=== PATIENT | female | born 1995 | race African-American/Black ===

== ENCOUNTER 2017-01-08 16:01 | Emergency (ER) | payer MEDICAID ==
[~2017-01-08] VITALS: Ht 172.7 cm; Wt 107.0 kg
[2017-01-08 16:12] VITALS: BP 117/72
[2017-01-08] MEDS ORDERED: QUETIAPINE FUM200 MG ORAL (16:21)
[2017-01-08] MEDS ORDERED: Acetaminophen 500mg (ES) tab ORAL ONE (16:30)
[2017-01-08] MEDS ORDERED: TYLENOL EXTRA500 MG ORAL (16:47)
[2017-01-08 16:56] VITALS: BP 104/71
--- NOTE | 2017-01-09 21:44 | Emergency Room Report ---
History of Present Illness General Chief Complaint: Pain Source: Patient Present Illness HPI 21-year-old female presents ED complaining of right calf pain times one week. States that pain started while she was running. States that she recently started exercising and has been increasing her exercise intensity. Pain is throbbing, 7/10, nonradiating. Worse with walking and running. Denies any other injuries. Denies chest pain or shortness of breath. No other aggravating or relieving factors. Denies any other associated symptoms Allergies: Coded Allergies: No Known Allergies (Unverified , 01/08/17) Patient History Past Medical History: none Past Surgical History: none Pertinent Family History: none Social History: Denies: alcohol use, drug use, smoking Now: No Immunizations: UTD Reviewed Nursing Documentation: PMH: Agreed, PSxH: Agreed Nursing Documentation-PMH Past Medical History: No Stated History Review of Systems All Other Systems: negative except mentioned in HPI Physical Exam Vital Signs Date Time Temp Pulse Resp B/P Pulse Ox O2 Delivery O2 Flow Rate FiO2 01/08/17 16:12 98.2 20 117/72 97 Room Air 01/08/17 16:12 101 Sp02 EP Interpretation: reviewed, normal General Appearance: no apparent distress, alert, GCS 15, non-toxic Head: normocephalic Eyes: bilateral eye PERRL, bilateral eye normal inspection ENT: normal ENT inspection Neck: normal inspection Respiratory: chest non-tender, lungs clear, normal breath sounds, speaking full sentences Cardiovascular #1: regular rate, rhythm, no edema Gastrointestinal: normal inspection Rectal: deferred Genitourinary: no CVA tenderness Musculoskeletal: normal inspection, tender - TTP R calf. no swelling Neurologic: alert, oriented x3, responsive, motor strength/tone normal, sensory intact, speech normal Psychiatric: normal inspection Skin: normal inspection Lymphatic: normal inspection Medical Decision Making Diagnostic Impression: Primary Impression: Strain of calf muscle Qualified Codes: S86.811A - Strain of other muscle(s) and tendon(s) at lower leg level, right leg, initial encounter ER Course Hospital Course 21-year-old female presents to ED complaining of R calf pain no trauma Differential diagnoses include: Fracture, dislocation, sprain, contusion, bursitis Clinical course Patient placed on stretcher. After initial history, physical exam reveals a young female in no acute distress. There is some tenderness to the right calf. No bruising. No swelling. Full range of motion in the leg. No chest pain shortness of breath. Physical exam otherwise unremarkable pain is likely muscle strain which mother agrees with. reassurance given to the patient. Recommend analgesics and modifying activity. Heating pad Diagnosis - strain of calf muscle stable and discharged to home with prescription for tylenol. Followup with PMD. Return to ED if symptoms recur or worsen Last Vital Signs Date Time Temp Pulse Resp B/P Pulse Ox O2 Delivery O2 Flow Rate FiO2 01/08/17 16:56 92 16 104/71 96 Room Air 01/08/17 16:12 98.2 Status: improved Disposition: HOME, SELF-CARE Condition: Stable Scripts Acetaminophen* (TYLENOL EXTRA STRENGTH*) 500 Mg Tablet 500 MG ORAL Q8H Y for Prn Headache/Temp > 101, #30 TAB 0 Refills Prov: SVITLANA QUINN M.D. 01/08/17 Patient Instructions: Muscle Strain, [id number] SVITLANA QUINN M.D. January 09, 2017 21:44
== END 2017-01-08 16:57 | disposition home or self-care (01) ==
LOC: EMR 16:25
DX: S86.111A Strain of other muscle(s) and tendon(s) of posterior muscle group at lower leg level, right leg, initial encounter (principal); Y93.02 Activity, running; Y92.89 Other specified places as the place of occurrence of the external cause
CPT/HCPCS: 99283

== ENCOUNTER 2017-02-17 14:03 | Emergency (ER) | payer MEDICAID ==
[~2017-02-17] VITALS: Ht 175.3 cm; Wt 109.3 kg
[~2017-02-17 14:03] MED LIST: QUETIAPINE FUM200 MG ORAL; TYLENOL EXTRA500 MG ORAL
[2017-02-17 14:16] VITALS: BP 118/77
--- NOTE | 2017-02-17 14:27 | Emergency Room Report ---
History of Present Illness General Chief Complaint: General Complaint Source: Patient Present Illness HPI Patient is a 21-year-old female presented for EKG interpretation. Patient had been taking psychiatric medications and had recently had EKG performed. Patient guardian was requesting EKG interpretation. The patient no symptoms at this time. The patient was advised followup with flight deck officer her primary care physician. She had not been having any chest pain or vomiting. Allergies: Coded Allergies: No Known Allergies (Unverified , 01/08/17) Patient History Past Medical History: see triage record Last Menstrual Period: 01/27 Now: No Reviewed Nursing Documentation: PMH: Agreed, PSxH: Agreed Nursing Documentation-PMH Past Medical History: No History, Except For Review of Systems All Other Systems: negative except mentioned in HPI Physical Exam Vital Signs Date Time Temp Pulse Resp B/P Pulse Ox O2 Delivery O2 Flow Rate FiO2 02/17/17 14:10 98.4 93 20 118/77 100 Room Air General Appearance: well appearing, no apparent distress, alert, GCS 15, non- toxic Head: normocephalic, atraumatic ENT: hearing grossly normal, normal voice Neck: full range of motion, supple Respiratory: normal inspection, chest non-tender, lungs clear, no respiratory distress, speaking full sentences Cardiovascular #1: normal inspection, normal peripheral pulses, regular rate, rhythm, no edema, no JVD, no murmur Gastrointestinal: normal inspection, normal bowel sounds, non tender, soft, no mass Musculoskeletal: normal inspection, back normal, no calf tenderness Neurologic: normal inspection, alert, oriented x3, normal gait Psychiatric: normal inspection, judgement/insight normal, mood/affect normal Skin: normal inspection, no rash Medical Decision Making Diagnostic Impression: Primary Impression: Sinus arrhythmia ER Course The patient presented for EKG reading. Differential diagnosis included was not limited to prolonged QT interval arrhythmia the others. Patient's benign exam and does not appear to require any further imaging or laboratory testing at this time. EKG was ordered due to possible QT prolongation. . EKG showed no concerning findings that would preclude continuing psychiatric medications. The patient is advised to follow up with primary care doctor and psychiatrist. She was advised followup with cardiology as indicated by her primary care physician if needed . Patient is advised to return if any worsening condition or if any changes in status that are concerning EKG Diagnostic Results Rate: normal Rhythm: NSR - 90 ST Segments: no acute changes - sinus arrhythmia ASA given to the pt in ED: No Chest X-Ray Diagnostic Results Chest X-Ray Ordered: No Last Vital Signs Date Time Temp Pulse Resp B/P Pulse Ox O2 Delivery O2 Flow Rate FiO2 02/17/17 14:16 98.4 93 20 118/77 100 Room Air Status: unchanged Disposition: HOME, SELF-CARE Condition: Stable Nikhil Hi Feb 17, 2017 14:27
[2017-02-17 14:54] VITALS: BP 118/77
--- NOTE | 2017-02-19 11:18 | Cardiology Report ---
APPROVED REPORT EKG Measurement Heart [id number] QTc0 No QRS complexes found, no ECG analysis possible
== END 2017-02-17 14:55 | disposition home or self-care (01) ==
LOC: EMR 14:21
DX: I49.8 Other specified cardiac arrhythmias (principal)
CPT/HCPCS: 93005; 99283

== ENCOUNTER 2017-06-18 00:49 | Emergency (ER) | payer MEDICAID ==
[~2017-06-18] VITALS: Ht 172.7 cm; Wt 115.7 kg
[2017-06-18 01:18] VITALS: BP 116/76
--- NOTE | 2017-06-18 01:20 | Emergency Room Report ---
History of Present Illness General Chief Complaint: General Complaint Source: Patient Present Illness HPI Is a 21-year-old female with no past medical history. She presents with chief complaint of something rushing through her veins. She was dancing for about 10 minutes and afterward felt flushed. Said that she fell at sensation of something rushing through her body. Denies any dizziness. Denies any nausea vomiting. Denies any chest pain. She called her mom and came to the ER. She is better now. Denies any other complaint. Allergies: Coded Allergies: No Known Allergies (Unverified , 01/08/17) Patient History Past Medical History: none, see triage record, old chart reviewed Past Surgical History: none Pertinent Family History: none Social History: Denies: smoking Last Menstrual Period: 2 weeks ago Now: No Immunizations: other Reviewed Nursing Documentation: PMH: Agreed, PSxH: Agreed Nursing Documentation-PMH Past Medical History: No Stated History Review of Systems Eye: Denies: eye pain, blurred vision ENT: Denies: ear pain, nose congestion, throat swelling Respiratory: Denies: cough, shortness of breath Cardiovascular: Denies: chest pain, palpitations Gastrointestinal: Denies: abdominal pain, diarrhea, nausea, vomiting Musculoskeletal: Denies: back pain, joint pain Skin: Denies: rash Neurological: Denies: headache, numbness Endocrine: Denies: increased thirst, increased urine Hematologic/Lymphatic: Denies: easy bruising All Other Systems: negative except mentioned in HPI Physical Exam Vital Signs Date Time Temp Pulse Resp B/P (MAP) Pulse Ox O2 Delivery O2 Flow Rate FiO2 06/18/17 01:07 98.4 97 17 116/76 98 Room Air vitals normal Sp02 EP Interpretation: reviewed, normal General Appearance: well appearing, no apparent distress, alert Head: normocephalic, atraumatic Eyes: bilateral eye PERRL, bilateral eye EOMI ENT: hearing grossly normal, normal pharynx Neck: full range of motion, supple, no meningismus Respiratory: chest non-tender, lungs clear, normal breath sounds Cardiovascular #1: regular rate, rhythm, no murmur Gastrointestinal: normal bowel sounds, non tender, no mass, no organomegaly, no bruit, non-distended Musculoskeletal: back normal, gait/station normal, normal range of motion Psychiatric: mood/affect normal Skin: warm/dry Medical Decision Making Diagnostic Impression: Primary Impression: Normal exam ER Course Patient present with a normal physiological response to exercise. No evidence of infection. No evidence of any abnormality. No palpitation. We'll discharge home with reassurance. Last Vital Signs Date Time Temp Pulse Resp B/P (MAP) Pulse Ox O2 Delivery O2 Flow Rate FiO2 06/18/17 01:07 98.4 97 17 116/76 98 Room Air Status: unchanged Disposition: HOME, SELF-CARE Condition: Stable Additional Instructions: Followup with your Dr. in 7 days as needed. Return if worse. MARIAN LUNSFORD M.D. Jun 18, 2017 01:20
[2017-06-18 01:29] VITALS: BP 116/76
== END 2017-06-18 01:29 | disposition home or self-care (01) ==
LOC: EMR 01:24
DX: R20.8 Other disturbances of skin sensation (principal)
CPT/HCPCS: 99282

== ENCOUNTER 2018-11-26 09:48 | Emergency (ER) | payer MEDICAID ==
[~2018-11-26] VITALS: Ht 172.7 cm; Wt 114.3 kg
[2018-11-26] MEDS ORDERED: NKM (09:54)
[2018-11-26 10:06] VITALS: BP 108/57
[2018-11-26] MEDS ORDERED: Mylanta II UD 30ml ORAL ONE (10:15)
[2018-11-26] MEDS ORDERED: Dicyclomine HCl 10mg/5ml oral soln ORAL ONE (10:15)
[2018-11-26] MEDS ORDERED: Lidocaine 2% Visc 15ml soln ORAL ONE (10:15)
[2018-11-26] MEDS ORDERED: BENZTROPINE ME0.5 MG PO (10:40)
[2018-11-26 10:54] VITALS: BP 102/62
--- NOTE | 2018-11-26 17:30 | History and Physical Report ---
DATE OF ADMISSION: 11/26/2018 HISTORY OF PRESENT ILLNESS: This is a 22-year-old female with a history of schizophrenia who has been recently hospitalized at [facility] psychiatry florez. The patient has been given Haldol Decanoate in the hospital. The patient has a history of noncompliance and does not take her psychotropic medication. The patient is presenting with restlessness, akathisia like symptoms, which is worse at night. The patient stated that the symptoms started shortly after she was given Haldol Decanoate. The patient is denying any suicidal ideation. The patient stated she was started on Benadryl and Cogentin in the hospital; however, she ran out of the medication. PAST PSYCHIATRY HISTORY: Has a history of schizophrenia and several psychiatric hospitalizations. PAST MEDICAL HISTORY: Nonsignificant. ALLERGIES: No known drug allergies. SUBSTANCE ABUSE HISTORY: No known history of illicit drug use or alcohol. MENTAL STATUS EXAMINATION: The patient is alert, oriented times self, place, and situation. Mood is dysphoric and anxious. Affect is constricted, congruent with mood. Thought process is linear and goal oriented. Thought content, no suicidal or homicidal ideation. Cognition is intact. ASSESSMENT: Aurora I Schizophrenia. Aurora II Deferred. Aurora III Akathisia. Aurora IV Low. Aurora V 60 to 70. PLAN: 1. The patient will be discharged on Cogentin 2 mg p.o. at bedtime. 2. The patient is reluctant to take any other psychotropic medication. 3. The patient is not suicidal nor homicidal. The patient is not in eminent danger to self or others. 4. The patient will be followed up as an outpatient psychiatrist with her own psychiatrist. The patient stated that she has an appointment today. I asked several times if the patient was suicidal and she denied. Nurse was present during the evaluation. Kurt Varela M.D. DR: CADEN JOB#: [id number] CC:
--- NOTE | 2018-11-27 06:53 | Emergency Room Report ---
History of Present Illness General Chief Complaint: General Complaint Source: Patient Present Illness HPI 22-year-old female presents ED for evaluation. Patient complaining of feeling restless and unable to sleep. States symptoms started after recent hospitalization at [facility] psychiatric inpatient unit. States that during hospitalization she was given Haldol. States that she's been feeling the symptoms since. Denies hearing voices. Denies SI or HI. Denies alcohol or drug use. No other aggravating relieving factors. Denies any other associated symptoms Allergies: Coded Allergies: No Known Allergies (Unverified , 01/08/17) Patient History Past Medical History: psych hx Past Surgical History: none Pertinent Family History: none Social History: Denies: smoking, alcohol use, drug use Last Menstrual Period: 10/26/18 Now: No Immunizations: UTD Reviewed Nursing Documentation: PMH: Agreed; PSxH: Agreed Nursing Documentation-PMH Past Medical History: No History, Except For History Of Psychiatric Problem: Yes - schizoprenia Review of Systems All Other Systems: negative except mentioned in HPI Physical Exam Vital Signs Date Time Temp Pulse Resp B/P (MAP) Pulse Ox O2 Delivery O2 Flow Rate FiO2 11/26/18 09:52 98.1 87 16 106/71 96 Room Air Sp02 EP Interpretation: reviewed, normal General Appearance: no apparent distress, alert, GCS 15, non-toxic Head: normocephalic, atraumatic Eyes: bilateral eye normal inspection, bilateral eye PERRL ENT: hearing grossly normal, normal pharynx, no angioedema, normal voice Neck: full range of motion, supple/symm/no masses Respiratory: chest non-tender, lungs clear, normal breath sounds, speaking full sentences Cardiovascular #1: regular rate, rhythm, no edema Cardiovascular #2: 2+ carotid (R), 2+ carotid (L), 2+ radial (R), 2+ radial (L) , 2+ dorsalis pedis (R), 2+ dorsalis pedis (L) Gastrointestinal: normal bowel sounds, non tender, soft, non-distended, no guarding, no rebound Rectal: deferred Genitourinary: normal inspection, no CVA tenderness Musculoskeletal: back normal, gait/station normal, normal range of motion, non- tender Neurologic: alert, oriented x3, responsive, motor strength/tone normal, sensory intact, speech normal Psychiatric: judgement/insight normal, memory normal, no suicidal/homicidal ideation, other - flat affect Reflexes: 3+ bicep (R), 3+ bicep (L), 3+ tricep (R), 3+ tricep (L), 3+ knee (R) , 3+ knee (L) Skin: normal color, no rash, warm/dry, well hydrated Lymphatic: no adenopathy Medical Decision Making Diagnostic Impression: Primary Impression: Adverse reaction to drug Qualified Codes: T50.905A - Adverse effect of unspecified drugs, medicaments and biological substances, initial encounter ER Course Hospital Course 22-year-old female presents ED complaining of restlessness after receiving Haldol injection Differential diagnoses include: allergic reaction, adverse effect to medication , psychosis Clinical course Patient placed on stretcher. After initial history physical exam reveals female in no acute distress. Patient maintains flat affect but answers questions appropriately. Is alert oriented. No signs of hallucinations. Symptoms consistent with akasthisia often seen with some antipsychotic such as Haldol Patient was evaluated by Dr. Varela at bedside. Agrees with the assessment. Patient told her that she was in fact on Cogentin and Benadryl during her hospitalization but does not have the medication at this time I do not believe patient is danger to self or others. We will discharge with Cogentin. Patient states she has a psychiatry appointment later today. Safe for discharge close outpatient follow-up i. I feel this is a highly complex case requiring extensive working including EKG/Rhythm strip, Xray/CT/US, Blood/urine lab work, repeat exams while in ED, and administration of strong opiates/narcotics for pain control, admission to hospital or close patient follow up. Diagnosis - adverse reaction to drug Stable and discharged to home with prescriptions for cogentin. Followup with PMD. Return to ED if symptoms recur or worsen Last Vital Signs Date Time Temp Pulse Resp B/P (MAP) Pulse Ox O2 Delivery O2 Flow Rate FiO2 11/26/18 10:54 98.2 78 18 102/62 100 Room Air Status: improved Disposition: HOME, SELF-CARE Condition: Stable Scripts Benztropine Mesylate* (COGENTIN*) 0.5 Mg Tablet 2 MG PO QHS, #30 TAB Prov: Sudhir Burr MD 11/26/18 Referrals: NON PHYSICIAN (PCP) [facility] Psych ER - Peds ER - [facility] Intake Hotline - Patient Instructions: Basics of Medicine Management Sudhir Burr MD Nov 27, 2018 06:53
== END 2018-11-26 10:50 | disposition home or self-care (01) ==
LOC: EMR 10:20
DX: T50.905A Adverse effect of unspecified drugs, medicaments and biological substances, initial encounter (principal); F20.9 Schizophrenia, unspecified; X58.XXXA Exposure to other specified factors, initial encounter
CPT/HCPCS: 99283

== ENCOUNTER 2018-12-06 10:29 | Emergency (ER) | payer MEDICAID ==
[~2018-12-06] VITALS: Ht 175.3 cm; Wt 81.6 kg
[~2018-12-06 10:29] MED LIST changes: +BENZTROPINE ME0.5 MG PO; +NKM
[2018-12-06 10:33] VITALS: BP 115/74
--- NOTE | 2018-12-06 10:37 | NUR ---
ED Nurse Note: After RN finished triage note, pt states that she wants to leave because she got a call from her mom who told her to leave. Confirmed with the patient if she wants to leave without being seen by ERMD and pt states yes. VSS and no s/s of distress. Pt left the triage room with all the belongings with steady gait.
== END 2018-12-06 10:55 | disposition left against medical advice (07) ==
LOC: EMR 10:45
DX: R45.1 Restlessness and agitation (principal); Z53.21 Procedure and treatment not carried out due to patient leaving prior to being seen by health care provider

== ENCOUNTER 2018-12-16 16:04 | Emergency (ER) | payer MEDICAID ==
[~2018-12-16] VITALS: Ht 172.7 cm; Wt 113.4 kg
[2018-12-16 16:21] VITALS: BP 118/75
[2018-12-16] MEDS ORDERED: DiphenhydrAMINE 25mg/10ml Elixir ORAL ONE (16:45)
[2018-12-16] MEDS ORDERED: BENADRYL25 M3 PO (16:53)
[2018-12-16 17:08] VITALS: BP 118/75
--- NOTE | 2018-12-16 17:09 | NUR ---
ER DISCHARGE NOTE: Patient is cleared to be discharged per ERMD, pt is aox4, on room air, with stable vital signs. pt was given dc and prescription instructions, pt was able to verbalize understanding, pt is able to ambulate with steady gait. pt took all belongings.
--- NOTE | 2018-12-16 17:43 | Emergency Room Report ---
History of Present Illness General Chief Complaint: General Complaint Source: Family Member Present Illness HPI Patient is a 22-year-old female presented after increased agitation and generalized anxiousness. Patient prior history of bipolar disorder. She denies any auditory hallucinations or suicidal thoughts. She reports currently taking no medications. She had previously been on Latuda which had been working well however she discontinued this. Patient also recently been prescribed Wellbutrin which she also discontinued due to headaches. Patient denies any current auditory hallucinations but states she has had some in the past Allergies: Coded Allergies: No Known Allergies (Unverified , 12/06/18) Patient History Past Medical History: see triage record Last Menstrual Period: 11/28/2018 Now: No Reviewed Nursing Documentation: PMH: Agreed; PSxH: Agreed Nursing Documentation-PMH Past Medical History: No History, Except For History Of Psychiatric Problem: Yes - depression, schizoaffective disorder, anxiety Review of Systems All Other Systems: negative except mentioned in HPI Physical Exam Vital Signs Date Time Temp Pulse Resp B/P (MAP) Pulse Ox O2 Delivery O2 Flow Rate FiO2 12/16/18 16:12 98.4 104 20 118/75 96 Room Air General Appearance: well appearing, no apparent distress, alert, GCS 15, obese Head: normocephalic, atraumatic ENT: hearing grossly normal, normal voice Neck: full range of motion, supple Respiratory: lungs clear, no respiratory distress, speaking full sentences Cardiovascular #1: normal inspection Gastrointestinal: normal inspection Musculoskeletal: no calf tenderness Neurologic: normal inspection, alert, oriented x3, responsive, reverse engineer III-XII nml as tested, normal gait Psychiatric: normal inspection, judgement/insight normal, memory normal, mood/ affect normal, no suicidal/homicidal ideation, no delusions Skin: no rash Medical Decision Making Diagnostic Impression: Primary Impression: Bipolar disorder ER Course ;.Patient presented for increased anxiety. Differential diagnosis include was not limited to medication withdrawal, insomnia, akathisia among others. Patient has a benign exam and does not appear to require any further imaging or laboratory testing at this time. Patient was noted to have no acute psychiatric problems. Patient was given oral Benadryl. She was given prescription for Benadryl as needed. Patient was advised to return if she develops any suicidal thoughts or had any other concerns. Last Vital Signs Date Time Temp Pulse Resp B/P (MAP) Pulse Ox O2 Delivery O2 Flow Rate FiO2 12/16/18 17:08 98.4 103 20 118/75 96 Room Air Status: improved Disposition: HOME, SELF-CARE Condition: Stable Scripts Diphenhydramine HCl (Benadryl) 25 Mg Capsule 25 MG PO Q6HR, #30 CAP Prov: Nikhil Hi MD 12/16/18 Referrals: NON PHYSICIAN (PCP) Patient Instructions: Bipolar Disorder Additional Instructions: Follow up with your mental health provider. Return if you have any suicidal thoughts, or other concerns. Nikhil Hi MD Dec 16, 2018 17:43
== END 2018-12-16 17:10 | disposition home or self-care (01) ==
LOC: EMR 16:43
DX: F31.9 Bipolar disorder, unspecified (principal); F32.9 Major depressive disorder, single episode, unspecified; F41.9 Anxiety disorder, unspecified; F25.9 Schizoaffective disorder, unspecified; E66.9 Obesity, unspecified; Z68.38 Body mass index [BMI] 38.0-38.9, adult
CPT/HCPCS: 99282

== ENCOUNTER 2020-02-28 18:54 | Emergency (ER) | payer MEDICAID ==
[~2020-02-28] VITALS: Ht 172.7 cm; Wt 124.7 kg
[2020-02-28 18:43] VITALS: BP 110/72
--- NOTE | 2020-02-28 18:43 | NUR ---
ED Nurse Note: pt walked in to ed for c/o of weakness, headache, bodyache x 1 week. pt reports she was tested for covid 2 weeks ago and was positive,
[~2020-02-28 18:54] MED LIST changes: +BENADRYL25 M3 PO
--- NOTE | 2020-02-28 19:19 | Emergency Room Report ---
History of Present Illness General Chief Complaint: Flu Like Symptoms Source: Patient Present Illness HPI 24-year-old female presents to the emergency department for evaluation. Upon my assessment to obtain HPI and ROS I asked the patient what symptoms she is experiencing and she replied with" I wrote them down on the papers already, I cannot remember". After review of nurse triage note is appears the pt. reported having body aches, fatigue, head aches and nausea/vomiting x 1 week. When asked how many episodes of vomiting she has had, she replied with "I don't know". The patient denies having a cough, shortness of breath, wheezes, chest pain or palpitations. Patient denies dizziness, visual changes, photophobia, neck pain/stiffness, fevers or chills. The patient herself states that she currently does not have any pain. She is concerned that she tested positive for COVID-19 2 weeks ago. She denies abdominal pain or tenderness, urinary symptoms, or suspicion of . HPI and ROS is severely limited by pt. being poorly cooperative. Review of this pt. chart I saw she has a hx of Bipolar disorder. 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 is poorly cooperative and reluctant to provide sufficient details. Physical Exam Vital Signs Date Time Temp Pulse Resp B/P (MAP) Pulse Ox O2 Delivery O2 Flow Rate FiO2 02/28/20 18:40 98.1 93 20 110/72 (85) 95 Room Air Sp02 EP Interpretation: reviewed, normal General Appearance: no apparent distress, alert, GCS 15, non-toxic Head: normocephalic, atraumatic Eyes: bilateral eye normal inspection, bilateral eye PERRL ENT: hearing grossly normal, normal pharynx, normal voice, uvula midline, other - no nasal congestion Neck: full range of motion, no meningismus Respiratory: chest non-tender, lungs clear, normal breath sounds, no rhonchi, no respiratory distress, no retraction, no accessory muscle use, no wheezing, speaking full sentences Cardiovascular #1: regular rate, rhythm Gastrointestinal: normal bowel sounds, non tender, soft, no guarding Genitourinary: normal inspection, no CVA tenderness Musculoskeletal: normal range of motion, gait/station normal, non-tender Neurologic: alert, motor strength/tone normal, oriented x3, sensory intact, responsive, speech normal Psychiatric: judgement/insight normal, other - Pt. is withdrawn Skin: normal color Medical Decision Making PA Attestation Dr. Burr is my supervising Physician whom patient management has been discussed with. Diagnostic Impression: Primary Impression: Viral syndrome ER Course 24-year-old female presents to the emergency department for evaluation. Upon my assessment to obtain HPI and ROS I asked the patient what symptoms she is experiencing and she replied with" I wrote them down on the papers already, I cannot remember". After review of nurse triage note is appears the pt. reported having body aches, fatigue, head aches and nausea/vomiting x 1 week. When asked how many episodes of vomiting she has had, she replied with "I don't know". The patient denies having a cough, shortness of breath, wheezes, chest pain or palpitations. Patient denies dizziness, visual changes, photophobia, neck pain/stiffness, fevers or chills. The patient herself states that she currently does not have any pain. She is concerned that she tested positive for COVID-19 2 weeks ago. She denies abdominal pain or tenderness, urinary symptoms, or suspicion of . HPI and ROS is severely limited by pt. being poorly cooperative. Review of this pt. chart I saw she has a hx of Bipolar disorder. Ddx considered but are not limited to UTI, , viral GE, URI, hypothyroid , bi-polar disorder, meningitis, influenza, COVID-19 just to name a few. Vital signs: Pt. is afebrile, the remaining VS are WNL H&PE are most consistent with Viral Syndrome - no meningeal signs, Lungs are clear and oropharynx is not involved, no evidence of bacterial infection at this time. The patient is nontoxic in appearance she is sitting comfortably in no acute distress. She does not have evidence of hypoxia, increased respiratory effort or signs of respiratory distress. ORDERS: d/w pt. about providing a sample of her urine for UTI and testing. She declined. I educated the pt. that often UTI's dont always present with typical urinary symptoms and can cause symptoms similar to what she is experiencing. Pt. continues to decline. She states she is here because she tested positive for COVID-19 and is having symptoms of it. ED INTERVENTIONS: None required at this time. I discussed with this patient that currently at this time there is no specific treatment for the COVID-19 disease. I discussed with her that the standard of care is symptomatic treatment and explained that involves treating any symptoms at the patient's are currently having. I discussed with this patient that most young persons exhibiting mild illness that are positive for the disease are not hospitalized they are treated at home. -I do not identify an emergent condition at this time given the limited cooperation of the pt. With current presentation and Vital signs, pt. is stable for close outpatient follow up and conservative treatment. D/w pt. to return promptly to ED with worsening or new symptoms.- Pt. verbalizes' understanding and agreement with proposed treatment plan.proposed treatment plan. DISCHARGE: At this time pt. is stable for d/c to home. Will provide printed patient care instructions, and any necessary prescriptions. Care plan and follow up instructions have been discussed with the patient prior to discharge. Last Vital Signs Date Time Temp Pulse Resp B/P (MAP) Pulse Ox O2 Delivery O2 Flow Rate FiO2 02/28/20 18:43 93 20 Room Air 02/28/20 18:43 98.1 110/72 95 Disposition: HOME, SELF-CARE Condition: Stable Scripts Ibuprofen* (MOTRIN*) 400 Mg Tablet 400 MG ORAL THREE TIMES A DAY, #30 TAB 0 Refills Prov: Grace Lyons 02/28/20 Ondansetron Odt* (ZOFRAN ODT*) 4 Mg Tab.rapdis 4 MG BC EVERY 6 HOURS PRN for Nausea & Vomiting, #6 TAB 0 Refills Prov: Grace Lyons 02/28/20 Acetaminophen* (TYLENOL EXTRA STRENGTH*) 500 Mg Tablet 500 MG ORAL Q6H PRN for For Pain, #20 TAB 0 Refills Prov: Grace Lyons 02/28/20 Referrals: [facility] Patient Instructions: Medical Screening Exam Additional Instructions: ~ ~ An emergent medical condition has not been identified based on this patients presentation, exam and any necessary testing/imaging. The patient is determined to be stable for outpatient follow-up and management of symptoms by a primary care provider. Take medications as directed. Follow up with a Primary Care Provider in 3-5 days, even if your symptoms have resolved. --Please review list of primary care clinics, if you do not already have a primary care provider Return sooner to ED if new symptoms occur, or current symptoms become worse. - Please note that this Emergency Department Report was dictated using Fiberstarpower transformer repairer technology software, occasionally this can lead to erroneous entry secondary to interpretation by the dictation equipment. Grace Lyons Feb 28, 2020 19:19
[2020-02-28] MEDS ORDERED: ONDANSETRON ODT4 MG BC (19:22)
[2020-02-28] MEDS ORDERED: TYLENOL EXTRA500 MG ORAL (19:22)
[2020-02-28] MEDS ORDERED: IBUPROFEN400 MG ORAL (19:22)
[2020-02-28 19:31] VITALS: BP 115/70
--- NOTE | 2020-02-28 19:31 | NUR ---
ER DISCHARGE NOTE: Patient is cleared to be discharged per ERMD, pt is aox4, on room air, with stable vital signs. pt was given dc and prescription instructions, pt was able to verbalize understanding, pt id band removed without complications. pt is able to ambulate with steady gait. pt took all belongings.
== END 2020-02-28 19:31 | disposition home or self-care (01) ==
LOC: EDBD 18:54 → EMR 19:28
DX: B34.9 Viral infection, unspecified (principal); Z86.19 Personal history of other infectious and parasitic diseases
CPT/HCPCS: 99282

== ENCOUNTER 2020-03-19 16:12 | Emergency (ER) | payer MEDICAID ==
[~2020-03-19 16:12] MED LIST changes: +IBUPROFEN400 MG ORAL; +ONDANSETRON ODT4 MG BC
--- NOTE | 2020-03-19 16:48 | NUR ---
ED Nurse Note: Patient left without being seen
--- NOTE | 2020-03-19 16:49 | Emergency Room Report ---
History of Present Illness General Chief Complaint: To Be Triaged Present Illness HPI This patient left prior to evaluation by medical provider. Allergies: Coded Allergies: No Known Allergies (Unverified , 12/06/18) COVID-19 Screening Contact w/high risk pt: No Experienced COVID-19 symptoms?: Yes Patient History Now: No Medical Decision Making PA Attestation Dr. Cook Is my supervising Physician whom patient management has been discussed with. Diagnostic Impression: Primary Impression: Patient left without being seen ER Course This patient left prior to evaluation by medical provider. Disposition: LEFT W/OUT BEING SEEN Condition: Unknown Grace Lyons Mar 19, 2020 16:49
== END 2020-03-19 16:48 | disposition left against medical advice (07) ==
LOC: EMR 16:35
DX: Z53.21 Procedure and treatment not carried out due to patient leaving prior to being seen by health care provider (principal)

== ENCOUNTER 2020-08-16 13:30 | Emergency (ER) | payer MEDICAID ==
[~2020-08-16] VITALS: Ht 172.7 cm; Wt 140.6 kg
--- NOTE | 2020-08-16 13:38 | NUR ---
ED Nurse Note: pt presents to ED c/o L great toe in-grown nail pain. reports it has been there for 3 months, she had something similar in the R great toe and had it removed by a Dr. pt states she has been taking Lamisil and using topical abx ointment without relief of pain. she denies having DM
[2020-08-16 13:40] VITALS: BP 132/87
[2020-08-16] MEDS ORDERED: Lidocaine 1% MPF 10mg/ml 5ml INJ ONE (13:45)
--- NOTE | 2020-08-16 13:49 | Emergency Room Report ---
History of Present Illness General Chief Complaint: Skin Rash/Abscess Source: Patient Present Illness HPI 24-year-old female with past medical history of schizoaffective disorder and bipolar disorder presents today for toenail removal of left first toe. Patient states she has had toe pain for the past 3 months and that she was told by her doctor to go to the ER to have it removed. Patient states she has not tried anything to make it better, walking on it makes it worse. Denies any other associated signs or symptoms. 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 PULMONARY: No SOB, no cough, no wheezing CARDIAC: No chest pain, No palpitations, no leg swelling GI: No abdominal pain, no vomiting, no diarrhea , no melena or BRBPR : No flank pain, no dysuria, no hematuria, no frequency. MUSCULOSKELETAL: +left toe pain, No back pain, no neck pain, no leg pain SKIN: No rash, no itching, no bruising NEUROLOGICAL: No headache, no dizziness, no paresthesia , no focal weakness. 14 point Review of Systems is otherwise negative except per HPI Physical Exam Vital Signs Date Time Temp Pulse Resp B/P (MAP) Pulse Ox O2 Delivery O2 Flow Rate FiO2 08/16/20 13:32 110 18 132/87 (102) 95 Room Air 08/16/20 13:40 98.1 Other Organ Systems Physical Exam: GENERAL: Awake, alert, nontoxic, in no acute distress EYES: EOMI, conjunctiva without pallor HEAD/EARS/NOSE/THROAT: NCAT, oral mucosa moist, external nose and ear normal in appearance, oropharynx clear, no swelling or exudates. NECK: supple, nontender, no spasm, no JVD, no cervical adenopathy RESPIRATORY: no stridor, effort normal, no retractions, no accessory muscle use, BS clear bilaterally, no wheezes, no rhonchi, no rales, no rub. CARDIOVASCULAR: RRR, normal S1 S2, no murmur, no peripheral edema ABDOMINAL /GI: soft, nondistended, nontender, BS normal, no masses, no guarding, no Mcburneys point tenderness, no rebound, no Murpheys sign : No CVA tenderness MUSCULOSKELETAL: All extremities are non-tender, no swelling, FROM, normal strength, normal sensation, cap refill <2 seconds in all extremities EXTREMITIES: left first toe with lateral edges growing into nail wall on medial lateral aspect of toenail. No evidence of infection or erythema. No purulent drainage. Otherwise no leg swelling, pulses: 2+ brisk and normal in all distal extremities SKIN: No rash, skin is warm and dry. No cyanosis, no pallor NEUROLOGICAL: awake, alert and appropriate, oriented x3, speech normal, motor and sensation grossly intact PSYCHIATRIC: Normal mood, normal affect Procedures Additional Procedure Procedure Narrative TOENAIL REMOVAL PROCEDURE: Complete Toenail Removal without matrix ablation - left 1st toenail removal ANESTHESIA AGENT(S): Lidocaine 1% without epinephrine -Total amt used: 7 ml INDICATIONS/COUNSELING: -Patient desires toe nail removal and is medically indicated due to pain. Risk and benefits were discussed. Verbal consent was given. PROCEDURE -Toe was cleansed with alocohol -Performed digital block of the Right 1st/Great toe using anesthetic agent(s) listed above. -Elevated complete nail plate from matrix and freed from adjacent cuticle and periungual skin. -EBL less than 1ml. -Xeroform dressing applied and toe was wrapped with 4x4 -Instructed the patient to follow up for fever, erythema, swelling, pain, or f oul-smelling purulent discharge from the wound. Medical Decision Making PA Attestation Dr. Ca Is my supervising Physician whom patient management has been discussed with. Diagnostic Impression: Primary Impression: Ingrown toenail ER Course Pt. presents to the ED c/o ingrown toenail of left first toe for 3 months Ddx considered but are not limited to ingrown toenail, paronychia, toe fracture Vital signs: are WNL, pt. is afebrile ORDERS: none required at this time, the diagnosis is clinical ED INTERVENTIONS: H&PE are most consistent with ingrown toenail and therefore Left first digit toenail removed today without complications. Wound was wrapped with Xeroform dressing. She was advised to keep dry for 2 days and follow-up to ER primary care physician in 2 days for wound check. She was advised to do warm foot soaks. Do not suspect paronychia or cellulitis, there is no surrounding warmth erythema or swelling to patient's toe, no purulent discharge. She had no injury to her toe, she states that this pain has been occurring for 3 months and she has a history of ingrown toenails. She states that she was referred here by her primary care physician because he would not see her at his office. DISCHARGE: At this time pt. is stable for d/c to home. Will provide printed patient care instructions, and any necessary prescriptions. Care plan and follow up instructions have been discussed with the patient prior to discharge. Last Vital Signs Date Time Temp Pulse Resp B/P (MAP) Pulse Ox O2 Delivery O2 Flow Rate FiO2 08/16/20 13:40 98.1 110 18 132/87 95 Room Air Status: improved Disposition: HOME, SELF-CARE Condition: Stable [facility] Patient Instructions: Ingrown Toenail Additional Instructions: Take tylenol as needed for pain. Follow up with a Primary Care Provider in 1-2 days, even if your symptoms have resolved. Return to ER in 2 days for a wound check. In two day you can remove the bandage and clean the area with warm soapy water. You can then redress the toe with the remainder xeroform dressing. Return sooner to ED if new symptoms occur, or current symptoms become worse. - Please note that this Emergency Department Report was dictated using iRewardChartsocial science manager technology software, occasionally this can lead to erroneous entry secondary to interpretation by the dictation equipment. Lydia Jimenez PA-C Aug 16, 2020 13:49
[2020-08-16] MEDS ORDERED: Acetaminophen 500mg (ES) tab ORAL ONE (14:00)
[2020-08-16 15:08] VITALS: BP 130/78
--- NOTE | 2020-08-16 15:08 | NUR ---
ED Nurse Note: Pt cleared by ERPA for discharge. DC instructions was given and explained to pt and verbalized understanding of teachings. All medical deviecs such as ID band removed. Pt is AAO x4, ambulatory and left with all personal belongings.
== END 2020-08-16 15:08 | disposition home or self-care (01) ==
LOC: EMR 14:15
DX: L60.0 Ingrowing nail (principal)
CPT/HCPCS: 11750; Z7502; 99282

== ENCOUNTER 2020-08-18 19:26 | Emergency (ER) | payer MEDICAID ==
[~2020-08-18] VITALS: Ht 172.7 cm; Wt 140.6 kg
[2020-08-18] MEDS ORDERED: SEROQUEL200 MG ORAL (19:34)
[2020-08-18 19:35] VITALS: BP 126/74
--- NOTE | 2020-08-18 19:35 | NUR ---
ED Nurse Note: Patient walked into ED c/o wound check up, reports of coming here on monday08/16/20 and had a procedure where they removed her ingrown toenail on her big toe on the left side. patient is alert and oriented x4, states that she was trying to remove said gauze and a piece was stuck and was unable to remove it due to pain. will wait for further orders
--- NOTE | 2020-08-18 19:56 | NUR ---
ED Nurse Note: lam Mijares cleansed the affected area. ERMD at the bedside assessing the site
--- NOTE | 2020-08-18 19:58 | Emergency Room Report ---
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 COVID-19 Screening: Positive COVID-19 COVID-19 Testing Source: [facility] Patient History Past Medical History: see triage record Last Menstrual Period: 08/18/20 Reviewed Nursing Documentation: PMH: Agreed; PSxH: Agreed Nursing Documentation-PMH Past Medical History: No Stated History Review of Systems All Other Systems: negative except mentioned in HPI Physical Exam Vital Signs Date Time Temp Pulse Resp B/P (MAP) Pulse Ox O2 Delivery O2 Flow Rate FiO2 08/18/20 19:30 98.4 105 18 126/74 (91) 96 Room Air General Appearance: well appearing, no apparent distress Head: normocephalic, atraumatic ENT: hearing grossly normal, normal voice Neck: full range of motion, supple Respiratory: no respiratory distress, speaking full sentences Musculoskeletal: other - Left lower extremity: Left great toe exposed, after gauze removed wound clean dry intact Neurologic: alert, normal gait Psychiatric: mood/affect normal Skin: no rash Medical Decision Making Diagnostic Impression: Primary Impression: Encounter for wound re-check ER Course 24-year-old female status post ingrown toe nail removal, wound unremarkable nonstick gauze provided Follow-up with podiatry disposition home with return precautions Last Vital Signs Date Time Temp Pulse Resp B/P (MAP) Pulse Ox O2 Delivery O2 Flow Rate FiO2 08/18/20 19:35 98.4 105 18 126/74 96 Room Air Disposition: HOME, SELF-CARE Condition: Stable Patient Instructions: Ingrown Toenail Additional Instructions: The patient was provided with discharge instructions, notified to follow-up with a primary care doctor and or specialist in the next 24-48 hours, and to return to the ED if they have worsening of their symptoms. Please note that this report is being documented using DRAGON technology. This can lead to erroneous entry secondary to incorrect interpretation by the dictating instrument. Please follow-up with podiatry Raul Cook MD Aug 18, 2020 19:58
[2020-08-18 20:02] VITALS: BP 118/65
--- NOTE | 2020-08-18 20:02 | NUR ---
ER DISCHARGE NOTE: Patient is cleared to be discharged per ERMD, pt is aox4, on room air, with stable vital signs. pt was given dc and prescription instructions, pt was able to verbalize understanding, pt id band removed. pt is able to ambulate with steady gait. pt took all belongings.
== END 2020-08-18 20:02 | disposition home or self-care (01) ==
LOC: EMR 19:45
DX: Z48.00 Encounter for change or removal of nonsurgical wound dressing (principal); Z86.19 Personal history of other infectious and parasitic diseases
CPT/HCPCS: 99281

== ENCOUNTER 2020-09-06 21:52 | Emergency (ER) | payer MEDICAID ==
[~2020-09-06] VITALS: Ht 172.7 cm; Wt 141.5 kg
[~2020-09-06 21:52] MED LIST changes: +SEROQUEL200 MG ORAL
[2020-09-06] MEDS ORDERED: ABILIFY10 MG ORAL (22:00)
[2020-09-06] MEDS ORDERED: PROZAC20 MG ORAL (22:00)
[2020-09-06 22:05] VITALS: BP 125/81
--- NOTE | 2020-09-06 22:06 | NUR ---
Nurse Note: PT walked in c/o RT great toe pain for one month. PT stated she had an ingrown toenail and went to a clinic one month ago to get treatment. PT stated they got half of the nail cut off for healing. PT stated she wore close toe shoe and pain got worse.
[2020-09-06] MEDS ORDERED: DOXYCYCLINE MO100 MG ORAL (22:10)
[2020-09-06] MEDS ORDERED: MUPIROCIN22 GM TOPIC (22:10)
--- NOTE | 2020-09-06 22:11 | Emergency Room Report ---
History of Present Illness General Chief Complaint: Pain Source: Patient Present Illness HPI This is a 24-year-old female with no significant past medical history. She presents with chief complaint of right toe pain. She actually has bilateral ingrown toenail partially removed. The left one is healing fine. The right one is irritated. There is some swelling. No drainage. Worse with walking and pressure. No fever chills but no nausea no vomiting. Pain is 8 out of 10. Denies any other complaint. No new trauma. 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 COVID-19 Screening: Negative COVID-19 COVID-19 Testing Source: clinic Patient History Past Medical History: see triage record, old chart reviewed Past Surgical History: other Pertinent Family History: none Social History: Denies: smoking Last Menstrual Period: august 11 Now: No Immunizations: other Reviewed Nursing Documentation: PMH: Agreed; PSxH: Agreed Nursing Documentation-PMH Past Medical History: No Stated History Review of Systems Eye: Denies: eye pain, blurred vision ENT: Denies: ear pain, nose congestion, throat swelling Respiratory: Denies: cough, shortness of breath Cardiovascular: Denies: chest pain, palpitations Gastrointestinal: Denies: abdominal pain, diarrhea, nausea, vomiting Musculoskeletal: Denies: back pain, joint pain Skin: Denies: rash Neurological: Denies: headache, numbness Endocrine: Denies: increased thirst, increased urine Hematologic/Lymphatic: Denies: easy bruising All Other Systems: negative except mentioned in HPI Physical Exam Vital Signs Date Time Temp Pulse Resp B/P (MAP) Pulse Ox O2 Delivery O2 Flow Rate FiO2 09/06/20 21:56 98.8 105 18 125/81 (96) 97 Room Air Vitals normal Sp02 EP Interpretation: reviewed, normal General Appearance: well appearing, no apparent distress, alert Head: normocephalic, atraumatic Eyes: bilateral eye PERRL, bilateral eye EOMI ENT: hearing grossly normal, normal pharynx Neck: full range of motion, supple, no meningismus Respiratory: chest non-tender, lungs clear, normal breath sounds Cardiovascular #1: regular rate, rhythm, no murmur Gastrointestinal: normal bowel sounds, non tender, no mass, no organomegaly, no bruit, non-distended Musculoskeletal: back normal, normal range of motion, gait/station normal, other - Right great toe: The medial aspect the nail is removed. At the tip of the nailbed there is some irritation to the skin. It is raised. The new nail is growing and digging into it. No drainage. Psychiatric: mood/affect normal Medical Decision Making Diagnostic Impression: Primary Impression: Encounter for wound re-check Additional Impression: Ingrown toenail ER Course Patient here for wound check. There is some mild irritation. No obvious infection but we will put her on antibiotics. No abscess seen. Will treat with antibiotics and ointment. Last Vital Signs Date Time Temp Pulse Resp B/P (MAP) Pulse Ox O2 Delivery O2 Flow Rate FiO2 09/06/20 22:05 98.8 78 18 125/81 97 Room Air Status: improved Disposition: HOME, SELF-CARE Condition: Stable Scripts Doxycycline Monohydrate* (DOXYCYCLINE MONOHYDRATE*) 100 Mg Capsule 100 MG ORAL Q12H, #14 CAP 0 Refills Prov: Uriel Pacheco MD 09/06/20 Mupirocin* (MUPIROCIN*) 22 Gm Oint...g. 1 APPLIC TOPIC THREE TIMES A DAY, #22 GM Prov: Uriel Pacheco MD 09/06/20 Referrals: [facility]ERR[facility] (PCP) Additional Instructions: Keep wound clean. Clean first with hydroperoxide or with soap and water. Then apply antibiotic ointment. Follow-up with your doctor in 7 days for recheck. Return if worse. Uriel Pacheco MD Sep 06, 2020 22:11
[2020-09-06] MEDS ORDERED: Neosporin Oint Ud Pkt TOPIC ONE (22:15)
[2020-09-06 22:20] VITALS: BP 125/81
--- NOTE | 2020-09-06 22:20 | NUR ---
ED Nurse Note: Pt cleared by health care Provider for discharge. DC instructions/prescription was given and explained to pt and verbalized understanding of teachings. Instructed to follow up with PCP within 2-6 days. All medical deviecs such as ID band removed. Pt is AAO x4, ambulatory and left with all personal belongings.
== END 2020-09-06 22:20 | disposition home or self-care (01) ==
LOC: EMR 22:05
DX: Z48.01 Encounter for change or removal of surgical wound dressing (principal); L60.0 Ingrowing nail
CPT/HCPCS: 99282

== ENCOUNTER 2020-09-17 18:10 | Emergency (ER) | payer MEDICAID ==
[~2020-09-17] VITALS: Ht 172.7 cm; Wt 133.8 kg
[~2020-09-17 18:10] MED LIST changes: +ABILIFY10 MG ORAL; +DOXYCYCLINE MO100 MG ORAL; +MUPIROCIN22 GM TOPIC; +PROZAC20 MG ORAL
--- NOTE | 2020-09-17 19:00 | NUR ---
ED Nurse Note: Pt. presents to the ED c/o vaginal irritation/ discomfort. Pelvic exam performed by MD and ultrasound completed.
--- NOTE | 2020-09-17 19:55 | Diagnostic Imaging Report ---
EXAM: US Pelvis Transabdominal and Transvaginal, Complete and US Duplex Arterial/Venous of the Pelvis, Complete CLINICAL HISTORY: PAIN TECHNIQUE: Real-time complete transabdominal and transvaginal pelvic ultrasound with image documentation. Transvaginal imaging was used for better evaluation of the endometrium and adnexa. Real-time duplex ultrasound scan of the arterial and venous flow of the pelvis with color Doppler flow and spectral waveform analysis. COMPARISON: No previous study. FINDINGS: Uterus/cervix: The uterus measures 7 x 5.5 x 4.6 cm per Endometrial stripe measures 0.3 cm. No myometrial mass. Right ovary: Right ovary measures 3.2 x 2.1 x 3.9 cm. 1.5 cm complex cyst within the right ovary. Flow to the right ovary is noted. No torsion. Left ovary: Left ovary is not visualized. Free fluid: No free fluid. Bladder: Unremarkable as visualized. Wall is normal thickness for degree of distention. IMPRESSION: 1. Retroverted uterus. 2. Endometrial stripe measures 0.3 cm. 3. The left ovary is not visualized. 4. Flow to the right ovary is noted. 5. Suspected right ovarian hemorrhagic cyst. Reimaging in 2 months is advised for reassessment.
--- NOTE | 2020-09-17 20:14 | Emergency Room Report ---
History of Present Illness General Chief Complaint: Female Urogenital Problems Source: Patient Present Illness HPI 24-year-old female presents to the emergency department complaining of a vaginal mass/fullness that has been progressive x3 weeks. Patient reports symptoms have not resolved on their own. She denies fevers or chills. Patient denies suspicion of . Patient reports she is not really sexually active anymore as she does not really have sensation in the vaginal area. She denies history of cancer. She denies night sweats. She denies significant changes in weight. She denies vaginal discharge. Patient denies ever having given . She reports now 6 out of 10 severity pain at the opening of the vagina. She denies abdominal pain or tenderness. She states she has not taken any medications for symptoms. She denies low back pain. She denies dysuria, hematuria, urinary frequency or urgency. She denies constipation or diarrhea. Allergies: Coded Allergies: No Known Allergies (Unverified , 12/06/18) COVID-19 Screening Contact w/high risk pt: No Experienced COVID-19 symptoms?: No COVID-19 Testing performed LAV CREWMAN: No Patient History Past Medical History: see triage record, psych hx Past Surgical History: none Pertinent Family History: none Last Menstrual Period: 08/11 Now: No Reviewed Nursing Documentation: PMH: Agreed; PSxH: Agreed Nursing Documentation-PMH Past Medical History: No Stated History Review of Systems All Other Systems: negative except mentioned in HPI Physical Exam Vital Signs Date Time Temp Pulse Resp B/P (MAP) Pulse Ox O2 Delivery O2 Flow Rate FiO2 09/17/20 18:15 98.8 102 18 121/79 (93) 98 Room Air Sp02 EP Interpretation: reviewed, normal General Appearance: no apparent distress, alert, GCS 15, non-toxic Head: normocephalic, atraumatic Eyes: bilateral eye normal inspection, bilateral eye PERRL ENT: hearing grossly normal, normal voice Neck: full range of motion Respiratory: lungs clear, normal breath sounds, speaking full sentences Cardiovascular #1: regular rate, rhythm Gastrointestinal: normal bowel sounds, non tender, soft, non-distended, no guarding Genitourinary: normal inspection, no CVA tenderness, other - on pelvic exam Cervix is protruding out of the vaginal orifice. urethra and upper vaginal structures are not involved. Bartholin's glands bilaterally are normal in size, no swelling, erythema or warmth. Musculoskeletal: normal range of motion, gait/station normal, non-tender Neurologic: alert, motor strength/tone normal, oriented x3, sensory intact, responsive, speech normal Psychiatric: judgement/insight normal Skin: no rash, normal color Lymphatic: no adenopathy Medical Decision Making PA Attestation Dr. Estes Is my supervising Physician whom patient management has been discussed with. Diagnostic Impression: Primary Impression: Uterine prolapse ER Course 24-year-old female presents to the emergency department complaining of a vaginal mass/fullness that has been progressive x3 weeks. Patient reports symptoms have not resolved on their own. She denies fevers or chills. Patient denies suspicion of . Patient reports she is not really sexually active anymore as she does not really have sensation in the vaginal area. She denies history of cancer. She denies night sweats. She denies significant changes in weight. She denies vaginal discharge. Patient denies ever having given . She reports now 6 out of 10 severity pain at the opening of the vagina. She denies abdominal pain or tenderness. She states she has not taken any medications for symptoms. She denies low back pain. She denies dysuria, hematuria, urinary frequency or urgency. She denies constipation or diarrhea. Ddx considered but are not limited to UTi , Pyelo, STI, Stone, Cystitis, vaginal laceration, vaginitis, Bartholin's gland cyst/infection, abscess, uterine prolapse just to name a few Vital signs: are WNL, pt. is afebrile H& PE are most consistent with: Visible uterine prolapse. NO adnexal ttp, Pt. is non-toxic in appearance, NAD. No evidence to suggest acute abdomen on exam. ORDERS: - Pelvic US: Retroverted uterus, endometriosis dry is 0.3 cm the left ovary is not visualized the right 1 is noted to have normal flow. Suspected right hemorrhagic cyst. Re-imaging in 2 months is advised for reassessment. ED INTERVENTIONS: - none required at this time. -Pt. declines pain medications while in the ED. DISCHARGE: At this time pt. is stable for d/c to home. Will provide printed patient care instructions, and any necessary prescriptions. Care plan and follow up instructions have been discussed with the patient prior to discharge. discussed with the patient prior to discharge. CT/MRI/US Diagnostic Results CT/MRI/US Diagnostic Results : Imaging Test Ordered: Pelvic US, transvaginal and transabdominal Impression " IMPRESSION: Retroverted uterus, endometriosis dry is 0.3 cm the left ovary is not visualized the right 1 is noted to have normal flow. Suspected right hemorrhagic cyst. Re-imaging in 2 months is advised for reassessment ." --Per official radiology report- Please see report for specific details. Last Vital Signs Date Time Temp Pulse Resp B/P (MAP) Pulse Ox O2 Delivery O2 Flow Rate FiO2 09/17/20 18:15 98.8 102 18 121/79 (93) 98 Room Air Disposition: HOME, SELF-CARE Condition: Stable Scripts Acetaminophen (Acetaminophen) 500 Mg Tablet 500 MG ORAL Q6HR for PAIN, #20 TAB Prov: Grace Lyons 09/17/20 Patient Instructions: Pelvic Organ Prolapse Additional Instructions: Take medications as directed. Follow up with a OBGYN within 3-5 days, even if your symptoms have resolved. Return sooner to ED if new symptoms occur, or current symptoms become worse. - Please note that this Emergency Department Report was dictated using [employer] mine supervisor technology software, occasionally this can lead to erroneous entry secondary to interpretation by the dictation equipment. Grace Lyons Sep 17, 2020 20:14
[2020-09-17] MEDS ORDERED: ACETAMINOPHEN500 M5 ORAL (20:17)
[2020-09-17 20:37] VITALS: BP 135/80
== END 2020-09-17 20:15 | disposition home or self-care (01) ==
LOC: EMR 18:45
DX: N81.4 Uterovaginal prolapse, unspecified (principal)
CPT/HCPCS: 76830; 76856; Z7502; 99284

== ENCOUNTER 2020-10-22 22:26 | Emergency (ER) | payer MEDICAID ==
[~2020-10-22] VITALS: Ht 172.7 cm; Wt 124.7 kg
[~2020-10-22 22:26] MED LIST changes: +ACETAMINOPHEN500 M5 ORAL
--- NOTE | 2020-10-22 22:50 | NUR ---
Pte came to ER ambulatory c/o left finger pain.
[2020-10-22] MEDS ORDERED: IBUPROFEN600 M1 ORAL (23:17)
--- NOTE | 2020-10-22 23:18 | Emergency Room Report ---
History of Present Illness General Chief Complaint: Pain Source: Patient Present Illness HPI This is a 24-year-old female presents with chief complaint of left finger nail injury. She says she was folding close and her nail got caught and bent backward. Hurts to move. This occurred an hour ago. She said the pain is 10 out of 10. No other injury. Initially it bled a little bit but stopped now. Allergies: Coded Allergies: No Known Allergies (Unverified , 12/06/18) COVID-19 Screening Contact w/high risk pt: No Experienced COVID-19 symptoms?: No COVID-19 Testing performed CONTRACT DESIGNER: No Patient History Now: No Nursing Documentation-[facility] History Of Psychiatric Problem: Yes Review of Systems Eye: Denies: eye pain, blurred vision ENT: Denies: ear pain, nose congestion, throat swelling Respiratory: Denies: cough, shortness of breath Cardiovascular: Denies: chest pain, palpitations Gastrointestinal: Denies: abdominal pain, diarrhea, nausea, vomiting Musculoskeletal: Denies: back pain, joint pain Skin: Denies: rash Neurological: Denies: headache, numbness Endocrine: Denies: increased thirst, increased urine Hematologic/Lymphatic: Denies: easy bruising All Other Systems: negative except mentioned in HPI Physical Exam Vital Signs Date Time Temp Pulse Resp B/P (MAP) Pulse Ox O2 Delivery O2 Flow Rate FiO2 10/22/20 22:51 98.8 88 16 136/94 (108) 97 Room Air Vitals normal Sp02 EP Interpretation: reviewed, normal General Appearance: well appearing, no apparent distress, alert Head: normocephalic, atraumatic Eyes: bilateral eye PERRL, bilateral eye EOMI ENT: hearing grossly normal, normal pharynx Neck: full range of motion, supple, no meningismus Respiratory: chest non-tender, lungs clear, normal breath sounds Cardiovascular #1: regular rate, rhythm, no murmur Gastrointestinal: normal bowel sounds, non tender, no mass, no organomegaly, no bruit, non-distended Musculoskeletal: back normal, normal range of motion, gait/station normal, other - Left fifth finger: She has on long acrylic nail. There is some gave to the nail. No active bleeding. No full avulsion of the nail. Psychiatric: mood/affect normal Medical Decision Making Diagnostic Impression: Primary Impression: Nail avulsion, finger Qualified Codes: S61.309A - Unspecified open wound of unspecified finger with damage to nail, initial encounter ER Course Patient presents with fingernail avulsion. No infection. Will treat conservat ively. I see no need to remove the nail. Is not a full avulsion. Last Vital Signs Date Time Temp Pulse Resp B/P (MAP) Pulse Ox O2 Delivery O2 Flow Rate FiO2 10/22/20 22:51 98.8 88 16 136/94 (108) 97 Room Air Status: improved Disposition: HOME, SELF-CARE Condition: Stable Scripts Ibuprofen* (MOTRIN*) 600 Mg Tablet 600 MG ORAL Q6H PRN for For Pain, #30 TAB 0 Refills Prov: Uriel Pacheco MD 10/22/20 Referrals: [facility]ERRING (PCP) Additional Instructions: Keep wound clean. No need to take off the acrylic nail. Follow-up with your doctor in 7 days for recheck. Return if worse. Uriel Pacheco MD Oct 22, 2020 23:18
[2020-10-22 23:25] VITALS: BP 132/89
--- NOTE | 2020-10-22 23:25 | NUR ---
Patient was discharge home as EDP ordered. All vital signs were taken within normal range. Patient . All prescriptions and instructions were given to the patient . Patient verbalized understanding. patient left the hospital in stable condition .
== END 2020-10-22 23:26 | disposition home or self-care (01) ==
LOC: EMR 22:38
DX: S61.307A Unspecified open wound of left little finger with damage to nail, initial encounter (principal); X58.XXXA Exposure to other specified factors, initial encounter; Y93.89 Activity, other specified; Y92.9 Unspecified place or not applicable
CPT/HCPCS: 99282